=== PATIENT | female | born 1990 | race Caucasian/White ===

== ENCOUNTER 2020-09-28 12:58 | Outpatient (CLI) | payer OTHER ==
[2020-09-28] MEDS ORDERED: HYDROCORTISONE SUPPOSITORY 25 MG SUPP RECTAL STA (13:13)
[2020-09-28] MEDS ORDERED: BENZOCAINE/MENTHOL SPRAY 1 GM/SPRAY AEROSOL TOPICAL PRN (13:16)
[2020-09-28 14:16] VITALS: BP 125/65; PULSE 97; RESP 18; TEMP 96.6
--- NOTE | 2020-09-29 08:20 | P.MSEPDOC ---
Presenting Problems - Arrival Data Date of Arrival on Unit: 09/28/20 Time of Arrival on Unit: 12:55 Mode of Transport: Ambulatory - Complaint OB-Reason for Admission/Chief Complaint: Possible Onset of Labor Comment: rectal pressure, constipation, ? contractions Medical History - Information : 3 Para: 2 Term: 2 : 0 Abortions: Spontaneous or Elective: 0 Number of Living Children: 2 - Gestational Age Gestational Age by ISABELLE (wks/days): 33 Weeks and 0 Days - History Comment: Hx hemorrhoids, constipation x 5 days Review of Systems - Review of Systems Constitutional: No problems Breast: No problems ENT: No problems Cardiovascular: No problems Respiratory: No problems Gastrointestinal: Constipation Genitourinary: No problems Musculoskeletal: No problems Neurological: No problems Skin: No problems Comment: + BM in triage today x2 Vital Signs - Temperature Temperature: 96.6 F Temperature Source: Temporal Artery Scan - Pulse Right Sitting Brachial Pulse Rate: 97 Pulse Assessment Method: Automatic Cuff - Respirations Respiratory Rate: 18 Oxygen Delivery Method: Room Air O2 Sat by Pulse Oximetry: 100 - Blood Pressure Right Arm Sitting Blood Pressure: 125/65 Blood Pressure Mean: 85 Blood Pressure Source: Automatic Cuff Medical Screen Scoring (Pre) - Cervical Exam Dilation: 0 cm = 0 Effacement: More than 50% = 2 Membranes: Intact - Uterine Contractions Frequency: > 5 minutes apart = 1 Duration: > 40 seconds = 2 Intensity: N/A - Maternal Vital Signs Maternal Temperature: N/A Maternal Blood Pressure: N/A Signs of Preeclampsia: N/A Maternal Respirations: N/A - Maternal Trauma Maternal Trauma: N/A - Assessment - Baby A Baseline FHR: 125 Heart Rate - NICHD Category: Category I (Normal) = 0 NST: Reactive Position: N/A Station: N/A - Total Score - Baby A Total Score - Baby A: 5 - Total Score - Baby B Total Score - Baby B: 5 - Total Score - Baby C Total Score - Baby C: 5 - Level of Risk - Baby A Level of Risk - Baby A: Low (0-5) - Level of Risk - Baby B Level of Risk - Baby B: Low (0-5) - Level of Risk - Baby C Level of Risk - Baby C: Low (0-5) Physician Notification (Pre) - Physician Notified Physician Notified Date: 09/28/20 Physician Notified Time: 14:00 New Order Received: Yes - Notification Comment Comment: Pt declined rectal suppository today, + BM x2 in triage, pt with some relief of hemorrhoid pain with tucks/dermaplast spray. Pt sent with tucks/spray/ice and instruction for OTC Anusol. Disposition - Disposition OB Disposition: Discharge to home Discharge Date: 09/28/20 Discharge Time: 14:09 I agree with the RN Medical Screening Exam: Yes Case reviewed; plan agreed upon as documented in EMR&OBIX.: Yes Diagnosis: HEMORRHOIDS IN , THIRD TRIMESTER
== END 2020-09-28 14:00 | disposition home or self-care (01) ==
LOC: FBPOP 12:58
PROVIDERS: ATTEND Obstetrics & Gynecology
DX: O22.43 Hemorrhoids in pregnancy, third trimester (principal); Z3A.33 33 weeks gestation of pregnancy
CPT/HCPCS: 59025; 99213

== ENCOUNTER 2020-11-10 06:16 | Inpatient (IN) | payer OTHER ==
[2020-11-10] MEDS ORDERED: METHYLERGONOVINE 0.2 MG/ML 1 ML AMP IM PRN (06:28)
[2020-11-10] MEDS ORDERED: OXYTOCIN 10 UNIT/ML 1 ML VIAL IM PRN (06:28)
[2020-11-10] MEDS ORDERED: TERBUTALINE 1 MG/ML VIAL SQ PRN (06:28)
[2020-11-10] MEDS ORDERED: CARBOPROST TROMETHAMINE 250 MCG/ML 1 ML AMP IM PRN (06:28)
[2020-11-10] MEDS ORDERED: LIDOCAINE 0.5% (PF) 5 MG/ML (50 ML SDV) SQ PRN (06:28)
[2020-11-10] MEDS ORDERED: OXYTOCIN 30 UNITS/500 ML NS 30 UNIT in SALINE 1 500ML.BAG IV SCH ×2 (06:30→13:00)
[2020-11-10] MEDS: LACTATED RINGERS 1,000 ML IV SCH ×2 (06:30→10:46)
[2020-11-10 06:59] LABS: Basophils % (A) 0 %; Eosinophils # (A) 0.1 k/uL (0-0.7); Eosinophils % (A) 1 %; HCT 35.6 % (34.0-46.0); HGB 12.1 gm/dL (11.4-16.0); Lymphocytes # (A) 1.4 k/uL (1.0-4.8); Lymphocytes % (A) 23 %; MCH 28.7 pg (25.0-35.0); MCHC 33.9 g/dL (31.0-37.0); MCV 84.5 fL (80.0-100.0); Mean Platelet Volume 7.6; Monocytes # (A) 0.4 k/uL (0-1.0); Monocytes % (A) 6 %; Neutrophils # (A) 4.2 k/uL (1.3-7.7); Neutrophils % (A) 69 %; Platelet Count 192 k/uL (150-450); RBC 4.22 m/uL (3.80-5.40); RDW 13.7 % (11.5-15.5); WBC 6.2 k/uL (3.8-10.6)
[2020-11-10] MEDS ORDERED: ROPIVACAINE 100 MG, fentaNYL (PF) 200 MCG in SODIUM CHLORIDE 0.9% 76 ML EPIDURAL ONE (10:46)
[2020-11-10] MEDS ORDERED: LANOLIN CREAM 5 GM TUBE TOPICAL PRN (12:47)
[2020-11-10] MEDS ORDERED: BENZOCAINE/MENTHOL SPRAY 1 GM/SPRAY AEROSOL TOPICAL PRN (12:47)
[2020-11-10] MEDS ORDERED: diphenhydrAMINE 25 MG CAP PO PRN (12:47)
[2020-11-10] MEDS ORDERED: SIMETHICONE 80 MG CHEWABLE PO PRN (12:47)
[2020-11-10] MEDS ORDERED: ZOLPIDEM 5 MG TAB PO PRN (12:47)
[2020-11-10] MEDS ORDERED: diphenhydrAMINE 50 MG/ML 1 ML VIAL IVP PRN ×2 (12:47)
[2020-11-10] MEDS ORDERED: HYDROCORTISONE 2.5% RECTAL CREAM 30 GM TUBE RECTAL PRN (12:47)
[2020-11-10] MEDS ORDERED: ACETAMINOPHEN TAB 325 MG TAB PO PRN (12:47)
[2020-11-10] MEDS ORDERED: diphenhydrAMINE 50 MG CAP PO PRN (12:47)
--- NOTE | 2020-11-10 12:52 | P.HPOB ---
History of Present Illness H&P Date: 11/10/20 Chief Complaint: Induction of Labor 30-year-old presents at 39 weeks and 1 day for induction of labor. Her cervix is 3 cm dilated, 60% effaced, and -2 station. She is romeo irregularly. heart tones 135 with moderate variability and reactive. Review of Systems All systems: negative Constitutional: Denies chills, Denies fever Eyes: denies blurred vision, denies pain Ears, nose, mouth and throat: Denies headache, Denies sore throat Cardiovascular: Denies chest pain, Denies shortness of breath Respiratory: Denies cough Gastrointestinal: Denies abdominal pain, Denies diarrhea, Denies nausea, Denies vomiting Genitourinary: Denies dysuria, Denies hematuria Musculoskeletal: Denies myalgias Integumentary: Denies pruritus, Denies rash Neurological: Denies numbness, Denies weakness Psychiatric: Denies anxiety, Denies depression Endocrine: Denies fatigue, Denies weight change Past Medical History Past Medical History: No Reported History Additional Past Medical History / Comment(s): Surgical history: She's had 2 previous vaginal deliveries. This is her third . She's had pale care with me the entire time. Blood type is O+, antibodies negative, rubella immune, hepatitis B negative, RPR nonreactive, GBS negative. History of Any Multi-Drug Resistant Organisms: None Reported Past Surgical History: Appendectomy, Tonsillectomy Past Anesthesia/Blood Transfusion Reactions: No Reported Reaction Smoking Status: Former smoker Past Drug Use History: Marijuana Additional Drug Use History / Comment(s): THC use Medications and Allergies Home Medications Medication Instructions Recorded Confirmed Type No Known Home Medications 09/28/20 09/28/20 History Allergies Allergy/AdvReac Type Severity Reaction Status Date / Time No Known Allergies Allergy Verified 09/28/20 13:03 Exam Osteopathic Statement: *. No significant issues noted on an osteopathic structural exam other than those noted in the History and Physical/Consult. Vital Signs Temp Pulse Resp BP 11/10/20 12:15 97.8 F 78 18 129/65 11/10/20 12:00 97.9 F 78 18 137/66 11/10/20 06:26 97.6 F 90 16 127/70 Intake and Output 11/09/20 11/10/20 11/10/20 22:59 06:59 14:59 Intake Total 5.817 Balance 5.817 Intake: Intake, IV Titration 5.817 Amount Oxytocin 30 Units/500 ml 5.817 Ns 30 unit In Saline 1 500ml.bag @ Per Protocol IV .Q0M [facility] Rx#:[id number] Other: Weight 82.554 kg Heart: Regular rate and rhythm Lungs: Clear to auscultation bilaterally Abdomen: Soft, nontender Extremities: Negative Homans sign Results Result Diagrams: 11/10/20 06:30 Assessment and Plan (1) Encounter for induction of labor Current Visit: Yes Status: Acute Code(s): Z34.90 - ENCNTR FOR SUPRVSN OF NORMAL , UNSP, UNSP TRIMESTER SNOMED Code(s): 802570626 Plan: 1. Induction of labor with amniotomy and Pitocin 2. Anticipate normal vaginal delivery
--- NOTE | 2020-11-10 12:53 | P.PROBDLV ---
Vaginal Delivery Note - . Vaginal Delivery Note: 30-year-old presents at 39 weeks and 1 day for induction of labor. Her cervix is 3 cm dilated, 60% effaced, and -2 station. She is romeo irregularly. heart tones 135 with moderate variability and reactive. Pitocin was started. Amniotomy performed at 7:01 AM clear fluid noted. When she was uncomfortable she did get an epidural. Her cervix is completely dilated at 11:43 AM. She pushed, and a viable female over intact perineum under epidural anesthesia at 11:57 AM. Head delivered OA, nuchal cord 1 easily reduced, anterior shoulder delivered gentle downward guidance followed by posterior shoulder and rest of body. Nose and mouth bulb suctioned, click to cut, placed on mother's abdomen. Apgars 8, 9, weight 7 lbs. 4 oz. Placenta delivered spontaneously, intact with three-vessel cord at 11:59 AM. Vagina, cervix, perineum were inspected. No lacerations noted. Estimated blood loss 200 mL. Mother and baby in stable condition.
[2020-11-10] MEDS: IBUPROFEN 600 MG TAB PO SCH ×2 (13:05→23:43)
[2020-11-10] MEDS: SENNOSIDES-DOCUSATE SODIUM 1 EACH TAB PO SCH (23:44)
[2020-11-11] MEDS: IBUPROFEN 600 MG TAB PO SCH ×3 (06:30→14:24)
[2020-11-11 08:39] LABS: Basophils % (A) 0 %; Eosinophils # (A) 0.1 k/uL (0-0.7); Eosinophils % (A) 1 %; HGB 10.7 gm/dL (11.4-16.0); Lymphocytes # (A) 1.3 k/uL (1.0-4.8); Lymphocytes % (A) 19 %; MCH 28.2 pg (25.0-35.0); MCHC 33.4 g/dL (31.0-37.0); MCV 84.4 fL (80.0-100.0); Mean Platelet Volume 7.9; Monocytes # (A) 0.3 k/uL (0-1.0); Monocytes % (A) 5 %; Neutrophils % (A) 74 %; Platelet Count 175 k/uL (150-450); RBC 3.79 m/uL (3.80-5.40); RDW 14.2 % (11.5-15.5); WBC 6.7 k/uL (3.8-10.6)
--- NOTE | 2020-11-11 08:40 | P.DS ---
Providers Date of admission: 11/10/20 06:16 Expected date of discharge: 11/11/20 Attending physician: Mackenzie Romo Primary care physician: Stated None - Discharge Diagnosis(es) (1) Encounter for induction of labor Current Visit: Yes Status: Resolved (2) Normal vaginal delivery Current Visit: Yes Status: Acute Hospital Course: Patient presented for induction of labor. She underwent a normal vaginal delivery. course was uncomplicated. She denies nausea, vomiting, chest pain, shortness of breath or any calf pain. Her lochia is minimal. She is ambulating and voiding without difficulty. Fundus is firm 2 fingerbreadths below the umbilicus. She'll be discharged home day #1 in stable condition to follow-up with me in 6 weeks. Plan - Discharge Summary New Discharge Prescriptions: No Action No Known Home Medications Discharge Medication List No Known Home Medications 09/28/20 [History]
[2020-11-11 09:26] VITALS: RESP 18
[2020-11-11] MEDS: SENNOSIDES-DOCUSATE SODIUM 1 EACH TAB PO SCH (09:48)
[2020-11-11 16:47] VITALS: BP 124/58; PULSE 67; TEMP 98.1
== END 2020-11-11 17:40 | disposition home or self-care (01) | DRG 807 ==
LOC: 4FBP 06:16
PROVIDERS: ADMIT Obstetrics & Gynecology; ATTEND Obstetrics & Gynecology
PROC: 10E0XZZ Delivery of Products of Conception, External Approach (ICD-10-PCS; principal; 2020-11-10)
PROC: 10907ZC Drainage of Amniotic Fluid, Therapeutic from Products of Conception, Via Natural or Artificial Opening (ICD-10-PCS; 2020-11-10)
PROC: 3E033VJ Introduction of Other Hormone into Peripheral Vein, Percutaneous Approach (ICD-10-PCS; 2020-11-10)
PROC: 3E0R3BZ Introduction of Anesthetic Agent into Spinal Canal, Percutaneous Approach (ICD-10-PCS; 2020-11-10)
DX: O69.81X0 Labor and delivery complicated by cord around neck, without compression, not applicable or unspecified (principal); Z37.0 Single live birth; Z87.891 Personal history of nicotine dependence; Z79.899 Other long term (current) drug therapy; Z3A.39 39 weeks gestation of pregnancy
CPT/HCPCS: 85025; 86850; 86900; 86901

== ENCOUNTER → 2022-06-30 | Outpatient (CLI) | payer OTHER ==
[2022-06-30 21:33] LABS: Chol/HDL Ratio 4.76 Ratio; LDL Cholesterol,Calculated 127.3 mg/dL (0.0-131.0); Magnesium 1.9 mg/dL (1.5-2.4)
[2022-06-30 22:07] LABS: ALT 12 U/L (8-44); AST 21 U/L (13-35); African American GFR (CKD) 135.4 (60.0-200.0); Albumin 4.7 g/dL (3.8-4.9); Albumin/Globulin Ratio 1.67 (1.60-3.17); Alkaline Phosphatase 77 U/L (41-126); BUN/Creat Ratio 15.94 Ratio (12.00-20.00); Bilirubin, Conjugated <0.20 mg/dL (0.20-0.40); Calcium 9.3 mg/dL (8.7-10.3); Carbon Dioxide 22.1 mmol/L (20.0-27.5); Chloride 107 mmol/L (96-109); Globulin 2.8 g/dL (1.6-3.3); Glucose 76 mg/dL (70-110); Non-African American GFR(CKD) 116.8 (60.0-200.0); Potassium 4.1 mmol/L (3.5-5.5); Sodium 143 mmol/L (135-145); Total Protein 7.5 g/dL (6.2-8.2)
== END | disposition home or self-care (01) ==
LOC: LABWHC1 11:26
PROVIDERS: ATTEND Internal Medicine
DX: R07.9 Chest pain, unspecified (principal)
CPT/HCPCS: 36415; 80048; 80061; 80076; 83735; 84439; 84443

== ENCOUNTER → 2022-06-30 | Outpatient (CLI) | payer OTHER ==
--- NOTE | 2022-07-01 21:38 | CA ---
Exercise Stress Test Report Name: Linette Weber Exam Date: 06/30/2022 11:06 Exam Location: [place] Stress Ht (in): 64 Wt (lb): 160 BSA: 1.78 Ordering Phys: Junaid Sierra MD Referring Phys: Junaid Sierra MD Technologist: Dylan Connolly Age: 32 Gender: F : 1990 Procedure CPT: Indications: R07.9 CHEST PAIN ICD-10 Codes: Patient History: CHEST PAIN, DIFFICULTY IN BREATHING, PALPITATIONS, FAMILY HX OF HEART DISEASE, CURRENT SMOKER 0.5 PPD X 15 YEARS Medications: KURVELO,,,,, Meds past 24 hrs: Pretest Chest Pain: STRESS TEST Michele Protocol Exercise Duration (min:sec): 07:[address] Depressions (mm): Angina Score: Hitchcock Score: Resting HR (bpm): 98 Peak HR (bpm): 174 Resting BP (mmHg): 136 / 96 Peak BP (mmHg): 142 / 102 MPHR: 190 Target HR: 162 % MPHR: 92 METS: 9.1 Total Dose: Peak Dose: Atropine: Double Product: 23058 BP Response: Stress Termination: MAX EXERTION/TARGET HR Stress Symptoms: DIZZINESS Stress Summary: ECG ANALYSIS Resting ECG: Stress ECG: CONCLUSIONS Baseline heart rate 85 beats a minute, Baseline blood pressure 136/96 Baseline 12-lead EKG shows sinus rhythm with normal IL narrow QRS T-wave inversions in the inferior leads and the lateral corner leads from V3 to V6 Patient exercised for a Michele protocol for 7 minutes, achieving a peak heart rate of 169 beats a minute, the blood pressure 140 901 100 mmHg He was dizzy during the stress test No arrhythmias No new EKG changes noted No evidence for ischemia Average exercise capacity Dr. Delfino Gutierrez MD (Electronically Signed) Final Date: 01 July 2022 21:38
== END | disposition home or self-care (01) ==
LOC: RADNMMAIN 10:39
PROVIDERS: ATTEND Internal Medicine
DX: R07.9 Chest pain, unspecified (principal)
CPT/HCPCS: 93017

== ENCOUNTER → 2022-07-21 | Outpatient (CLI) | payer OTHER ==
--- NOTE | 2022-07-22 07:06 | CA ---
Transthoracic Echo Report Name: Linette Weber Age: 32 Gender: F : 1990 Exam Date: 07/21/2022 14:46 Exam Location: [place] Echo Ht (in): 64 Wt (lb): 160 Ordering Physician: Junaid Sierra MD Attending/Referring Phys: Junaid Sierra MD Lean Manufacturing Engineer Alba Brown RDCS Procedure CPT: Indications: R07.9 CHEST PAIN Cardiac Hx: Technical Quality: Fair Contrast 1: Total Dose (mL): Contrast 2: Total Dose (mL): MEASUREMENTS (Male / Female) Normal Values 2D ECHO LV Diastolic Diameter PLAX 4.4 cm 4.2 - 5.9 / 3.9 - 5.3 cm LV Systolic Diameter PLAX 2.7 cm IVS Diastolic Thickness 0.9 cm 0.6 - 1.0 / 0.6 - 0.9 cm LVPW Diastolic Thickness 1.0 cm 0.6 - 1.0 / 0.6 - 0.9 cm LV Relative Wall Thickness 0.4 RV Internal Dim ED PLAX 3.3 cm LA Volume 27.9 cm??? 18 - 58 / 22 - 52 cm??? M-MODE Aortic Root Diameter MM 2.3 cm LA Systolic Diameter MM 3.4 cm LA Ao Ratio MM 1.5 AV Cusp Separation MM 1.7 cm DOPPLER AV Peak Velocity 126.7 cm/s AV Peak Gradient 6.4 mmHg AV Mean Velocity 91.1 cm/s AV Mean Gradient 3.6 mmHg AV Velocity Time Integral 20.2 cm LVOT Peak Velocity 60.8 cm/s LVOT Peak Gradient 1.5 mmHg MV Area PHT 3.4 cm??? Mitral E Point Velocity 77.6 cm/s Mitral A Point Velocity 63.1 cm/s Mitral E to A Ratio 1.2 MV Deceleration Time 220.3 ms MV E' Velocity 10.3 cm/s Mitral E to MV E' Ratio 7.5 TR Peak Velocity 189.6 cm/s TR Peak Gradient 14.4 mmHg Right Ventricular Systolic Press 19.4 mmHg FINDINGS Left Ventricle Normal left ventricular systolic function with no obvious regional wall motion abnormalities. Left ventricular ejection fraction is estimated at 55-60 %. Normal left ventricular diastolic filling pattern. Right Ventricle Normal right ventricular size and function. Right ventricular systolic pressure within normal limits. Right Atrium Normal right atrial size. Negative agitated saline bubble study for right to left shunt. Left Atrium Normal left atrial size. No evidence for an atrial septal defect. No patent foramen ovale. Mitral Valve Structurally normal mitral valve. No mitral stenosis or prolapse. Trace mitral regurgitation Aortic Valve Trileaflet aortic valve. No aortic valve stenosis or regurgitation. Tricuspid Valve Structurally normal tricuspid valve. Trace tricuspid regurgitation. Pulmonic Valve Structurally normal pulmonic valve. Pericardium No pericardial effusion. Aorta Normal size aortic root and proximal ascending aorta. CONCLUSIONS 1. Normal left ventricle size and systolic function 2. Trace mitral and tricuspid regurgitation 3. Negative bubble study with no evidence of shunting Previewed by: Dr. Henri Curry MD (Electronically Signed) Final Date: 22 July 2022 07:05
== END | disposition home or self-care (01) ==
LOC: RADECHMAIN 14:46
PROVIDERS: ATTEND Internal Medicine
DX: I08.1 Rheumatic disorders of both mitral and tricuspid valves (principal); R07.9 Chest pain, unspecified
CPT/HCPCS: 93306

== ENCOUNTER 2023-11-29 19:25 | Emergency (ER) | payer OTHER ==
--- NOTE | 2023-11-29 19:33 | ED ---
General Adult HPI - General Source: patient, RN notes reviewed Mode of arrival: ambulatory Limitations: no limitations <Alice Small - Last Filed: 11/29/23 19:32> <Damien Milner - Last Filed: 11/29/23 22:12> <Williams Gilmore - Last Filed: 11/30/23 00:47> - General Stated complaint: Chest Pain/Left arm pain Time Seen by Provider: 11/29/23 19:32 - History of Present Illness Initial comments: Quick note: 33-year-old female presents to the emergency department for evaluation of central chest pain radiating to her left arm. She states that this started on Tuesday or Tuesday. She states that she was not doing anything in particular when it started. She does follow with cardiology and reports a "abnormal EKG" in the past. She has had a stress test and echocardiogram performed in the past. (Alice Small) - Related Data Home Medications Medication Instructions Recorded Confirmed No Known Home Medications 09/28/20 09/28/20 Allergies Allergy/AdvReac Type Severity Reaction Status Date / Time No Known Allergies Allergy Verified 09/28/20 13:03 Review of Systems ROS Other: All systems not noted in ROS Statement are negative. <Alice Small - Last Filed: 11/29/23 19:32> ROS Other: All systems not noted in ROS Statement are negative. <Damien Milner - Last Filed: 11/29/23 22:12> ROS Other: All systems not noted in ROS Statement are negative. <Williams Gilmore - Last Filed: 11/30/23 00:47> ROS Statement: Those systems with pertinent positive or pertinent negative responses have been documented in the HPI. Past Medical History Past Medical History: No Reported History Additional Past Medical History / Comment(s): Surgical history: She's had 2 previous vaginal deliveries. This is her third . She's had pale care with me the entire time. Blood type is O+, antibodies negative, rubella immune, hepatitis B negative, RPR nonreactive, GBS negative. History of Any Multi-Drug Resistant Organisms: None Reported Past Surgical History: Appendectomy, Tonsillectomy Past Anesthesia/Blood Transfusion Reactions: No Reported Reaction Smoking Status: Former smoker Past Drug Use History: Marijuana <Alice Small - Last Filed: 11/29/23 19:32> General Exam Limitations: no limitations <Alice Small - Last Filed: 11/29/23 19:32> - General Exam Comments Initial Comments: Visual Physical Exam Vital signs reviewed General: Well-appearing, nontoxic, no acute distress. Head: Normocephalic, atraumatic Eyes: PERRLA, EOMI ENT: Airway patent Chest: Nonlabored breathing Skin: No visual rash, normal skin tone Neuro: Alert and oriented 3 Musculoskeletal: No gross abnormalities (Alice Small) Course Vital Signs 11/29/23 19:29 Temperature 98 F Pulse Rate 101 H Respiratory 18 Rate Blood Pressure 158/95 O2 Sat by Pulse 98 Oximetry EKG Findings - EKG Results: EKG: interpreted by ERMD, sinus rhythm (Rate 87 bpm), normal axis, normal QRS - Blocks, [place], Hypertrophy, ST Abn: Repolarization changes or abnormalities: nonspecific abnormality, ST segment, and/or T wave <Damien Milner - Last Filed: 11/29/23 22:12> Medical Decision Making <Alice Small - Last Filed: 11/29/23 19:32> - Lab Data Result diagrams: 11/29/23 20:00 11/29/23 20:00 <Damien Milner - Last Filed: 11/29/23 22:12> - Lab Data Result diagrams: 11/29/23 20:00 11/29/23 20:00 <Williams Gilmore - Last Filed: 11/30/23 00:47> - Medical Decision Making Quick note preformed and electronically signed by Alice Small PA-C (Alice Small) Patient care signed out to me by previous shift physician, Dr. Milner. Briefly, patient 33-year-old female presents to the emergency department with atypical chest pain typical features. Plan at signout was to follow-up with pending CT imaging CT angio was negative for PE. No other acute processes noted. Patient reevaluated at 12:47 AM in stable medical condition. Patient discharged advised follow-up with primary care doctor. (Williams Gilmore) - Lab Data Lab Results 11/29/23 11/29/23 11/29/23 Range/Units 20:00 20:00 20:00 WBC 7.3 (3.8-10.6) k/uL RBC 4.72 (3.80-5.40) m/uL Hgb 13.9 (11.4-16.0) gm/dL Hct 41.5 (34.0-46.0) % MCV 88.0 (80.0-100.0) fL MCH 29.4 (25.0-35.0) pg MCHC 33.5 (31.0-37.0) g/dL RDW 12.5 (11.5-15.5) % Plt Count 277 (150-450) k/uL MPV 7.9 Neutrophils % 62 % Lymphocytes % 30 % Monocytes % 5 % Eosinophils % 2 % Basophils % 0 % Neutrophils # 4.5 (1.3-7.7) k/uL Lymphocytes # 2.2 (1.0-4.8) k/uL Monocytes # 0.4 (0-1.0) k/uL Eosinophils # 0.1 (0-0.7) k/uL Basophils # 0.0 (0-0.2) k/uL PT 9.7 L (10.0-12.5) sec INR 0.9 (<1.2) APTT 25.0 (22.0-30.0) sec D-Dimer (<0.60) mg/L FEU Sodium 142 (137-145) mmol/L Potassium 3.9 (3.5-5.1) mmol/L Chloride 109 H (98-107) mmol/L Carbon Dioxide 23 (22-30) mmol/L Anion Gap 10 mmol/L BUN 10 (7-17) mg/dL Creatinine 0.64 (0.52-1.04) mg/dL Est GFR (CKD-EPI)AfAm >90 (>60 ml/min/1.73 sqM) Est GFR (CKD-EPI)NonAf >90 (>60 ml/min/1.73 sqM) Glucose 96 (74-99) mg/dL Calcium 9.3 (8.4-10.2) mg/dL Magnesium 2.0 (1.6-2.3) mg/dL Total Bilirubin 0.4 (0.2-1.3) mg/dL AST 22 (14-36) U/L ALT 20 (4-34) U/L Alkaline Phosphatase 65 (38-126) U/L Troponin I (0.000-0.034) ng/mL Total Protein 7.1 (6.3-8.2) g/dL Albumin 4.3 (3.5-5.0) g/dL Urine HCG, Qual (Not Detectd) 11/29/23 11/29/23 11/29/23 Range/Units 20:00 20:00 22:29 WBC (3.8-10.6) k/uL RBC (3.80-5.40) m/uL Hgb (11.4-16.0) gm/dL Hct (34.0-46.0) % MCV (80.0-100.0) fL MCH (25.0-35.0) pg MCHC (31.0-37.0) g/dL RDW (11.5-15.5) % Plt Count (150-450) k/uL MPV Neutrophils % % Lymphocytes % % Monocytes % % Eosinophils % % Basophils % % Neutrophils # (1.3-7.7) k/uL Lymphocytes # (1.0-4.8) k/uL Monocytes # (0-1.0) k/uL Eosinophils # (0-0.7) k/uL Basophils # (0-0.2) k/uL PT (10.0-12.5) sec INR (<1.2) APTT (22.0-30.0) sec D-Dimer 0.60 H (<0.60) mg/L FEU Sodium (137-145) mmol/L Potassium (3.5-5.1) mmol/L Chloride (98-107) mmol/L Carbon Dioxide (22-30) mmol/L Anion Gap mmol/L BUN (7-17) mg/dL Creatinine (0.52-1.04) mg/dL Est GFR (CKD-EPI)AfAm (>60 ml/min/1.73 sqM) Est GFR (CKD-EPI)NonAf (>60 ml/min/1.73 sqM) Glucose (74-99) mg/dL Calcium (8.4-10.2) mg/dL Magnesium (1.6-2.3) mg/dL Total Bilirubin (0.2-1.3) mg/dL AST (14-36) U/L ALT (4-34) U/L Alkaline Phosphatase (38-126) U/L Troponin I <0.012 (0.000-0.034) ng/mL Total Protein (6.3-8.2) g/dL Albumin (3.5-5.0) g/dL Urine HCG, Qual Not Detected (Not Detectd) Disposition <Alice Small - Last Filed: 11/29/23 19:32> <Damien Milner - Last Filed: 11/29/23 22:12> Is patient prescribed a controlled substance at d/c from ED?: No Time of Disposition: 00:45 <Williams Gilmore - Last Filed: 11/30/23 00:47> Clinical Impression: Chest pain Disposition: HOME SELF-CARE Condition: Good Instructions (If sedation given, give patient instructions): Chest Pain (ED) Referrals: None,Stated [Primary Care Provider] - 1-2 days
[2023-11-29 19:48] VITALS: RESP 18; TEMP 98
[2023-11-29 20:12] LABS: Basophils % (A) 0 %; Eosinophils # (A) 0.1 k/uL (0-0.7); Eosinophils % (A) 2 %; HCT 41.5 % (34.0-46.0); HGB 13.9 gm/dL (11.4-16.0); Lymphocytes # (A) 2.2 k/uL (1.0-4.8); Lymphocytes % (A) 30 %; MCH 29.4 pg (25.0-35.0); MCHC 33.5 g/dL (31.0-37.0); Mean Platelet Volume 7.9; Monocytes # (A) 0.4 k/uL (0-1.0); Monocytes % (A) 5 %; Neutrophils # (A) 4.5 k/uL (1.3-7.7); Neutrophils % (A) 62 %; Platelet Count 277 k/uL (150-450); RBC 4.72 m/uL (3.80-5.40); RDW 12.5 % (11.5-15.5); WBC 7.3 k/uL (3.8-10.6)
[2023-11-29 20:21] LABS: INR 0.9 (<1.2); Prothrombin Time 9.7 sec (10.0-12.5)
--- NOTE | 2023-11-29 20:45 | XR ---
EXAMINATION TYPE: XR chest 2V DATE OF EXAM: 11/29/2023 8:03 PM CLINICAL INDICATION:Female, 33 years old with history of Chest Pain; PH[facility] COMPARISON: None TECHNIQUE: XR chest 2V Frontal and lateral views of the chest. FINDINGS: Lungs/Pleura: There is no evidence of pleural effusion, focal consolidation, or pneumothorax. Pulmonary vascularity: Unremarkable. Heart/mediastinum: Cardiomediastinal silhouette is unremarkable. Musculoskeletal: No acute osseous pathology. IMPRESSION: No acute cardiopulmonary disease/process.
[2023-11-29 20:52] LABS: ALT 20 U/L (4-34); AST 22 U/L (14-36); African American GFR (CKD) >90 (>60 ml/min/1.73 sqM); Albumin 4.3 g/dL (3.5-5.0); Alkaline Phosphatase 65 U/L (38-126); Anion Gap 10 mmol/L; Blood Urea Nitrogen 10 mg/dL (7-17); Calcium 9.3 mg/dL (8.4-10.2); Carbon Dioxide 23 mmol/L (22-30); Chloride 109 mmol/L (98-107); Glucose 96 mg/dL (74-99); Non-African American GFR(CKD) >90 (>60 ml/min/1.73 sqM); Potassium 3.9 mmol/L (3.5-5.1); Sodium 142 mmol/L (137-145); Total Bilirubin 0.4 mg/dL (0.2-1.3); Total Protein 7.1 g/dL (6.3-8.2)
--- NOTE | 2023-11-30 00:37 | CT ---
EXAM: CT Angiography Chest With Intravenous Contrast CLINICAL HISTORY: L upper chest pain, possible PE TECHNIQUE: Axial computed tomographic angiography images of the chest with intravenous contrast. CTDI is 11.17 mGy and DLP is 278.6 mGy-cm. This CT exam was performed using one or more of the following dose reduction techniques: automated exposure control, adjustment of the mA and/or kV according to patient size, and/or use of iterative reconstruction technique. MIP reconstructed images were created and reviewed. COMPARISON: No relevant prior studies available. FINDINGS: Pulmonary arteries: Unremarkable. No pulmonary embolism. Aorta: No acute findings. No thoracic aortic aneurysm. Lungs: Unremarkable. No mass. No consolidation. Pleural space: Unremarkable. No significant effusion. No pneumothorax. Heart: Unremarkable. No cardiomegaly. No significant pericardial effusion. Bones/joints: No acute fracture. No dislocation. Soft tissues: Unremarkable. Lymph nodes: Unremarkable. No enlarged lymph nodes. IMPRESSION: Normal chest CTA. No pulmonary embolism.
[2023-11-30 01:33] VITALS: BP 131/91; PULSE 65
== END 2023-11-30 00:57 | disposition home or self-care (01) ==
LOC: EC 19:25
DX: R07.89 Other chest pain (principal); Z87.891 Personal history of nicotine dependence
CPT/HCPCS: 36415; 93005; 85379; 80053; 83735; 84484; 85025; 85610; 85730; 81025; 71046; 71275; 99285; Q9967

== ENCOUNTER → 2023-12-21 | Outpatient (CLI) | payer OTHER ==
--- NOTE | 2023-12-21 09:56 | MM ---
Reason for Exam: Clinical finding. Baseline mammogram. Indicated Problems: Pain of the left side (Global) for 2 Month(s). Patient History: Menarche at age 13. First Full-Term at age 27. Patient has history of breast feeding. Currently using Hormonal Contraceptives, for 15 years. Last menstrual period: 12/07/2023 Prior Study Comparison: Patient's first Mammogram. Tissue Density: The breasts are heterogeneously dense, which may obscure small masses. Findings: Analyzed By CAD. The pattern is symmetrical. No suspicious abnormality lateral left breast to account for patient's reported pain and swelling identified by mammography. Ultrasound recommended for additional evaluation. No suspicious groups of microcalcifications, spiculated or lobular masses, architectural distortion or other secondary signs of malignancy are mammographically apparent. Overall Assessment: Incomplete: need additional imaging evaluation, BI-RAD 0 Management: Diagnostic Breast Ultrasound of the left breast. A negative mammogram report should not preclude additional follow up of suspicious palpable abnormalities. Patient should continue monthly self breast exam. A clinical breast exam by your physician is recommended on an annual basis and results should be correlated with mammographic findings. Note on Kaykay scores and lifetime risk: 1. A Kaykay score greater than 3% is considered moderate risk. If this is the case, consider specialist referral to assess eligibility for a risk reducing agent. 2. If overall lifetime risk for the development of breast cancer is 20% or higher, the patient may qualify for future screening with alternating mammogram and breast MRI. Electronically signed and approved by: Enzo Boucher D.O. Radiologis
--- NOTE | 2023-12-21 10:23 | USB ---
Reason for Exam: Clinical finding. Patient History: Menarche at age 13. First Full-Term at age 27. Patient has history of breast feeding. Currently using Hormonal Contraceptives, for 15 years. Technique: Method: Whole Breast Handheld. Doppler: Color. Patient Position: Supine. Prior Study Comparison: No prior studies available for comparison. Findings: The whole breast of the left breast, the axilla of the left breast and the retroareolar of the left breast were scanned. At the 2:00 position 4 cm from the nipple left breast there is a hypoechoic area adjacent US abdominal view is less pronounced. No corresponding mammographic abnormality. Remainder of the ultrasound appears unremarkable. Overall Assessment: Probably benign, BI-RAD 3 Management: Diagnostic Breast Ultrasound of the left breast in 6 months. A clinical breast exam by your physician is recommended on an annual basis and results should be correlated with mammographic findings. This exam should not preclude additional follow-up of suspicious palpable abnormalities. Results were given to the patient verbally at the time of exam. Electronically signed and approved by: Enzo Boucher D.O. Radiologis
== END | disposition home or self-care (01) ==
LOC: RADMAMWWP 09:12
PROVIDERS: ATTEND Internal Medicine
DX: N60.12 Diffuse cystic mastopathy of left breast (principal)
CPT/HCPCS: 77062; 77066

== ENCOUNTER 2024-03-01 11:04 | Emergency (ER) | payer OTHER ==
[2024-03-01 11:45] LABS: Basophils % (A) 0 %; Eosinophils # (A) 0.1 k/uL (0-0.7); Eosinophils % (A) 1 %; HCT 40.9 % (34.0-46.0); HGB 13.4 gm/dL (11.4-16.0); Lymphocytes # (A) 1.7 k/uL (1.0-4.8); Lymphocytes % (A) 19 %; MCH 28.8 pg (25.0-35.0); MCHC 32.7 g/dL (31.0-37.0); MCV 88.1 fL (80.0-100.0); Mean Platelet Volume 7.9; Monocytes # (A) 0.4 k/uL (0-1.0); Monocytes % (A) 5 %; Neutrophils # (A) 6.6 k/uL (1.3-7.7); Neutrophils % (A) 73 %; Platelet Count 306 k/uL (150-450); RBC 4.64 m/uL (3.80-5.40); RDW 12.9 % (11.5-15.5)
[2024-03-01 11:57] LABS: Appearance,Urine Clear (Clear); Bilirubin,Urine Negative (Negative); Blood,Urine Negative (Negative); Color,Urine Colorless; Glucose,Urine (UA) Negative (Negative); Ketones,Urine Negative (Negative); Leukocyte Esterase,Urine Negative (Negative); Nitrite,Urine Negative (Negative); Protein,Urine Negative (Negative); Specific Gravity,Urine 1.007 (1.001-1.035); Urobilinogen,Urine <2.0 mg/dL (<2.0)
[2024-03-01 12:23] LABS: ALT 15 U/L (4-34); AST 20 U/L (14-36); African American GFR (CKD) >90 (>60 ml/min/1.73 sqM); Albumin 4.3 g/dL (3.5-5.0); Alkaline Phosphatase 67 U/L (38-126); Anion Gap 8 mmol/L; Blood Urea Nitrogen 6 mg/dL (7-17); Calcium 9.8 mg/dL (8.4-10.2); Carbon Dioxide 21 mmol/L (22-30); Chloride 108 mmol/L (98-107); Glucose 97 mg/dL (74-99); Non-African American GFR(CKD) >90 (>60 ml/min/1.73 sqM); Potassium 3.9 mmol/L (3.5-5.1); Sodium 137 mmol/L (137-145); Total Bilirubin 0.4 mg/dL (0.2-1.3); Total Protein 6.8 g/dL (6.3-8.2)
--- NOTE | 2024-03-01 12:30 | US ---
EXAMINATION TYPE: Transabdominal DATE OF EXAM: 03/01/2024 11:58 AM COMPARISON: NONE CLINICAL INDICATION: Female, 33 years old with history of Right sided pelvic pain in ; No pr evious US for this . EXAM PERFORMED: Transabdominal (TA) EXAM MEASUREMENTS: GESTATIONAL AGE / DATING Physician Established: Not yet established Dates by LMP: (8 weeks/0 days) EDC: 10/11/2024 Dates by First Scan: No previous this is first scan Dates by Current Scan for: (7 weeks/5 days) EDC: 10/13/2024 MATERNAL ANATOMY Uterus: 8.6 x 7.0 x 5.4 cm Right Ovary: 2.4 x 1.6 x 1.6 cm Left Ovary: 2.6 x 2.2 x 1.8 cm Post CDS / Adnexa: no free fluid Presence of free fluid: no Presence of corpus luteal cyst: no Presence of subchorionic bleed: adjacent to GS = 1.9 x 0.5 x 0.3 cm GESTATION / SURVEY CRL: 1.4 cm (7 weeks/5 days) MSD: seen, not measured Yolk Sac (normal less than 6mm): 3.0 mm Heart Rate: 129 bpm Rhythm: Normal IUP: Viable IUP Date of LMP: 01/05/2024, Beta HcG (if available): Not available at this time IMPRESSION: 1. Single live intrauterine gestation ultrasound age 7 weeks 5 days small subchorionic hemorrhage pre sent.
--- NOTE | 2024-03-01 12:40 | ED ---
Abdominal Pain HPI - General Chief Complaint: Abdominal Pain Stated Complaint: 8wks preg/cramping Time Seen by Provider: 03/01/24 11:13 Source: patient, RN notes reviewed Mode of arrival: ambulatory Limitations: no limitations - History of Present Illness Initial Comments: This is a 33-year-old female who presents to the emergency department for abdominal pain in . Patient is approximately 8 weeks and . States that she has had problems with right lower quadrant pain ongoing for the last 4 weeks. She does have occasional nausea as well and states that this has been an issue in prior pregnancies. Denies any vaginal bleeding or discharge. She is waiting for an appointment with [facility], but was advised to come to the emergency department to rule out an ectopic . MD Complaint: abdominal pain - Related Data Previous Rx's Medication Instructions Recorded Ondansetron Odt [Zofran Odt] 4 mg PO Q8HR PRN #30 tab 03/01/24 Allergies Allergy/AdvReac Type Severity Reaction Status Date / Time No Known Allergies Allergy Verified 09/28/20 13:03 Review of Systems ROS Statement: Those systems with pertinent positive or pertinent negative responses have been documented in the HPI. ROS Other: All systems not noted in ROS Statement are negative. Past Medical History Past Medical History: No Reported History Additional Past Medical History / Comment(s): Surgical history: She's had 2 previous vaginal deliveries. This is her third . She's had pale care with me the entire time. Blood type is O+, antibodies negative, rubella immune, hepatitis B negative, RPR nonreactive, GBS negative. History of Any Multi-Drug Resistant Organisms: None Reported Past Surgical History: Appendectomy, Tonsillectomy Past Anesthesia/Blood Transfusion Reactions: No Reported Reaction Smoking Status: Former smoker Past Drug Use History: Marijuana General Exam Limitations: no limitations General appearance: alert, in no apparent distress Head exam: Present: atraumatic, normocephalic, normal inspection Respiratory exam: Present: normal lung sounds bilaterally. Absent: respiratory distress, wheezes, rales, rhonchi, stridor Cardiovascular Exam: Present: regular rate, normal rhythm, normal heart sounds. Absent: systolic murmur, diastolic murmur, rubs, gallop, clicks Neurological exam: Present: alert, oriented X3, CN II-XII intact Psychiatric exam: Present: normal affect, normal mood Skin exam: Present: warm, dry, intact, normal color. Absent: rash Course Vital Signs 03/01/24 03/01/24 11:10 13:05 Temperature 99 F 98.3 F Pulse Rate 100 72 Respiratory 20 18 Rate Blood Pressure 127/82 124/77 O2 Sat by Pulse 98 100 Oximetry Medical Decision Making - Medical Decision Making This is a 33 year old female who presents to the emergency department for abdominal pain in . Was pt. sent in by a medical professional or institution? @ -No Did you speak to anyone other than the patient for history? @ -No Did you review nursing and triage notes? @ -Yes, and I agree, it is accurate with regards to the patient's symptoms. Were old charts reviewed? @ -No Differential Diagnosis? @ -Differential Abdominal Pain Women: Appendicitis, Cholecystitis, diverticulosis, ischemic bowel, pancreatitis, hepatitis, UTI, gastroenteritis, AAA, incarcerated hernia, bowel obstruction, constipation, inflammatory bowel, hepatitis, peptic ulcer disease, splenic infarction, perforated viscus, vulvitis, ovarian torsion, PID, kidney stone, placenta abruption, this is not meant to be an all-inclusive list EKG interpreted by me (3pts min.)? @ -Not obtained X-rays interpreted by me (1pt min.)? @ -Not obtained CT interpreted by me (1pt min.)? @ -Not obtained U/S interpreted by me (1pt. min.)? @ -Obstetrics ultrasound obtained. My interpretation identifies a single live intrauterine . What testing was considered but not performed? (CT, X-rays, U/S, labs)? Why? @ -None What meds were considered but not given? Why? @ -None Did you discuss the management of the patient with other professionals? @ -No Did you reconcile home meds? @ -No Was smoking cessation discussed for >3mins.? @ -No Was critical care preformed (if so, how long)? @ -No Were there social determinants of health that impacted care today? How? (Homelessness, low income, unemployed, alcoholism, drug addiction, transportation, low edu. Level, literacy, decrease access to med. care, [facility], rehab)? @ -No Was there de-escalation of care discussed even if they declined? (Discuss DNR or withdrawal of care, Hospice)? @ -No What co-morbidities impacted this encounter? (DM, HTN, Smoking, COPD, CAD, Cancer, CVA, Hep., AIDS, mental health diagnosis, sleep apnea, morbid obesity)? @ - Was patient admitted / discharged? @ -Discharge. Lab work unremarkable. Urinalysis negative for signs of infection. OB ultrasound obtained demonstrating a single live intrauterine with a gestational age of 7 weeks 5 days. A small subchorionic hemorrhage is also present. Findings reviewed with the patient. Currently denies any bleeding. There is no evidence of an ectopic , which was her concern. Additionally, with regards to the right lower quadrant pain, patient no longer has her appendix. She declined any Tylenol in the emergency department. She does report minor nausea in this which has been a problem in prior pregnancies. States that Zofran often works well for her. She was given a prescription for this to use as needed for any additional nausea and she will otherwise follow-up with [facility]EL[facility]. Undiagnosed new problem with uncertain prognosis? @ -None Drug Therapy requiring intensive monitoring for toxicity (Heparin, Nitro, Insulin, Cardizem)? @ -None Were any procedures done? @ -None Diagnosis/symptom? @ -Pelvic pain in Acute, or Chronic, or Acute on Chronic? @ -Acute Uncomplicated (without systemic symptoms) or Complicated (systemic symptoms)? @ -Uncomplicated Side effects of treatment? @ -None Exacerbation, Progression, or Severe Exacerbation] @ -Not applicable Poses a threat to life or bodily function? @ -No Return precautions reviewed in depth, the patient is instructed to return to the emergency department with any new, worsening, or concerning symptoms. Patient verbalized understanding. This case was discussed in detail with the attending ED physician, Dr. Gonzalez. Presentation, findings, and treatment plan discussed in detail as well. - Lab Data Result diagrams: 03/01/24 11:34 03/01/24 11:34 Lab Results 03/01/24 03/01/24 03/01/24 Range/Units 11:34 11:34 11:44 WBC 9.0 (3.8-10.6) k/uL RBC 4.64 (3.80-5.40) m/uL Hgb 13.4 (11.4-16.0) gm/dL Hct 40.9 (34.0-46.0) % MCV 88.1 (80.0-100.0) fL MCH 28.8 (25.0-35.0) pg MCHC 32.7 (31.0-37.0) g/dL RDW 12.9 (11.5-15.5) % Plt Count 306 (150-450) k/uL MPV 7.9 Neutrophils % 73 % Lymphocytes % 19 % Monocytes % 5 % Eosinophils % 1 % Basophils % 0 % Neutrophils # 6.6 (1.3-7.7) k/uL Lymphocytes # 1.7 (1.0-4.8) k/uL Monocytes # 0.4 (0-1.0) k/uL Eosinophils # 0.1 (0-0.7) k/uL Basophils # 0.0 (0-0.2) k/uL Sodium 137 (137-145) mmol/L Potassium 3.9 (3.5-5.1) mmol/L Chloride 108 H (98-107) mmol/L Carbon Dioxide 21 L (22-30) mmol/L Anion Gap 8 mmol/L BUN 6 L (7-17) mg/dL Creatinine 0.41 L (0.52-1.04) mg/dL Est GFR (CKD-EPI)AfAm >90 (>60 ml/min/1.73 sqM) Est GFR (CKD-EPI)NonAf >90 (>60 ml/min/1.73 sqM) Glucose 97 (74-99) mg/dL Calcium 9.8 (8.4-10.2) mg/dL Total Bilirubin 0.4 (0.2-1.3) mg/dL AST 20 (14-36) U/L ALT 15 (4-34) U/L Alkaline Phosphatase 67 (38-126) U/L Total Protein 6.8 (6.3-8.2) g/dL Albumin 4.3 (3.5-5.0) g/dL HCG, Quant 50257.8 mIU/mL Urine Color Colorless Urine Appearance Clear (Clear) Urine pH 7.0 (5.0-8.0) Ur Specific [place] 1.007 (1.001-1.035) Urine Protein Negative (Negative) Urine Glucose (UA) Negative (Negative) Urine Ketones Negative (Negative) Urine Blood Negative (Negative) Urine Nitrite Negative (Negative) Urine Bilirubin Negative (Negative) Urine Urobilinogen <2.0 (<2.0) mg/dL Ur Leukocyte Esterase Negative (Negative) - Radiology Data Radiology results: report reviewed, image reviewed Disposition Clinical Impression: Pelvic pain during , Subchorionic hematoma Disposition: HOME SELF-CARE Instructions (If sedation given, give patient instructions): Abdominal Pain in (ED), Subchorionic Hemorrhage (ED) Additional Instructions: Return to the emergency department with any new, worsening, or concerning symptoms. Take Tylenol as needed for pain relief. You can take the Zofran up to every 8 hours as needed for nausea and vomiting. Follow up with your APPLICATION DEVELOPER. Prescriptions: Ondansetron Odt [Zofran Odt] 4 mg PO Q8HR PRN #30 tab PRN Reason: Nausea And Vomiting Is patient prescribed a controlled substance at d/c from ED?: No Referrals: None,Stated [Primary Care Provider] - 1-2 days Time of Disposition: 12:56
[2024-03-01 13:07] VITALS: BP 124/77; PULSE 72; RESP 18; TEMP 98.3
== END 2024-03-01 13:06 | disposition home or self-care (01) ==
LOC: EC 11:04
DX: O34.91 Maternal care for abnormality of pelvic organ, unspecified, first trimester (principal); O20.8 Other hemorrhage in early pregnancy; Z3A.08 8 weeks gestation of pregnancy; Z87.891 Personal history of nicotine dependence; Z90.49 Acquired absence of other specified parts of digestive tract
CPT/HCPCS: 36415; 76801; 80053; 81003; 84702; 85025; 99284

== ENCOUNTER → 2024-06-29 | Outpatient (CLI) | payer OTHER ==
--- NOTE | 2024-06-29 13:20 | USB ---
Reason for Exam: Follow-up at short interval from prior study. Patient History: Menarche at age 13. First Full-Term at age 27. Patient has history of breast feeding. Currently using Hormonal Contraceptives, for 15 years. Technique: Method: Targeted. Prior Study Comparison: 12/21/2023 Bilateral MG 3D diag mammo w/cad [place], [facility]. Findings: The lateral section of the breast of the left breast, the axilla of the left breast and the retroareolar of the left breast were scanned. No solid or cystic masses are identified.. Overall Assessment: Negative, BI-RAD 1 Management: Screening Mammogram of both breasts at age 42. A clinical breast exam by your physician is recommended on an annual basis and results should be correlated with mammographic findings. This exam should not preclude additional follow-up of suspicious palpable abnormalities. Results were given to the patient verbally at the time of exam. [facility], , 06/29/2024 1:15 PM. Electronically signed and approved by: Carlo Humphrey M.D. Radiologis
== END | disposition home or self-care (01) ==
LOC: RADUSWWP 12:53
PROVIDERS: ATTEND Internal Medicine
DX: N63.20 Unspecified lump in the left breast, unspecified quadrant (principal)

== ENCOUNTER 2024-08-07 17:48 | Outpatient (CLI) | payer OTHER ==
[2024-08-07 18:08] LABS: Glucose,Whole Blood 95 mg/dL (70-110)
[2024-08-07 18:52] LABS: Appearance,Urine Clear (Clear); Bilirubin,Urine Negative (Negative); Blood,Urine Negative (Negative); Color,Urine Light Yellow; Glucose,Urine (UA) Negative (Negative); Ketones,Urine Negative (Negative); Leukocyte Esterase,Urine Negative (Negative); Nitrite,Urine Negative (Negative); Protein,Urine Negative (Negative); Specific Gravity,Urine 1.011 (1.001-1.035); Urobilinogen,Urine <2.0 mg/dL (<2.0)
[2024-08-07] MEDS: LACTATED RINGERS 1,000 ML IV ONE (19:50)
[2024-08-07 19:58] VITALS: BP 124/78; PULSE 84; RESP 16; TEMP 97.9
--- NOTE | 2024-08-26 11:51 | P.MSEPDOC ---
Presenting Problems - Arrival Data Date of Arrival on Unit: 08/07/24 Time of Arrival on Unit: 17:48 Mode of Transport: Ambulatory - Complaint OB-Reason for Admission/Chief Complaint: Decreased Movement, Dizziness Comment: Patient presents to triage with decreased movement, dizziness, and intermittent abdominal pressure. Medical History - Information : 4 Para: 3 Term: 3 : 0 Abortions: Spontaneous or Elective: 0 Number of Living Children: 3 - Gestational Age Gestational Age by ISABELLE (wks/days): 30 Weeks and 5 Days Review of Systems - Review of Systems Constitutional: No problems Breast: No problems ENT: No problems Cardiovascular: No problems Respiratory: No problems Gastrointestinal: No problems Genitourinary: No problems Musculoskeletal: No problems Neurological: No problems Skin: No problems Vital Signs - Temperature Temperature: 97.9 F Temperature Source: Temporal Artery Scan - Pulse Pulse Oximetery Pulse Rate: 84 Pulse Assessment Method: Pulse Oximetry - Respirations Respiratory Rate: 16 Oxygen Delivery Method: Room Air O2 Sat by Pulse Oximetry: 97 - Blood Pressure Right Arm Blood Pressure: 124/78 Blood Pressure Mean: 93 Blood Pressure Source: Automatic Cuff Maternal Triage Index - Maternal Triage Index Presenting for scheduled procedure w/no complaint: No - Stat/Priority 1 Stat Priority 1: No - Urgent/Priority 2 Urgent Priority 2: Yes Provider Notified: Juan Julien Provider Notified Time: 17:51 Criteria Met for Priority 2: Patient presents to triage with decreased movement, dizziness, and intermittent abdominal pressure. Disposition - Disposition OB Disposition: Discharge to home I agree with the RN Medical Screening Exam: Yes Physician's MSE Comment: I have neither seen nor examined the patient. Case reviewed; plan agreed upon as documented in EMR&OBIX.: Yes Diagnosis: RELATED CONDITIONS, UNSPECIFIED, THIRD TRIMESTER
== END 2024-08-07 19:59 ==
LOC: FBPOP 17:48
PROVIDERS: ATTEND Obstetrics & Gynecology
DX: O36.8190 Decreased fetal movements, unspecified trimester, not applicable or unspecified (principal); O26.893 Other specified pregnancy related conditions, third trimester; R42 Dizziness and giddiness; Z3A.30 30 weeks gestation of pregnancy
CPT/HCPCS: 59025; 81003; 99213

== ENCOUNTER 2024-08-30 14:47 | Outpatient (CLI) | payer OTHER ==
[2024-08-30 15:40] LABS: Basophils % (A) 0 %; Eosinophils % (A) 1 %; HGB 10.2 gm/dL (11.4-16.0); Hypochromasia Slight; Lymphocytes # (A) 0.9 k/uL (1.0-4.8); Lymphocytes % (A) 26 %; MCH 27.8 pg (25.0-35.0); MCV 84.4 fL (80.0-100.0); Mean Platelet Volume 8.2; Monocytes # (A) 0.2 k/uL (0-1.0); Monocytes % (A) 5 %; Neutrophils # (A) 2.3 k/uL (1.3-7.7); Neutrophils % (A) 65 %; Platelet Count 181 k/uL (150-450); RBC 3.67 m/uL (3.80-5.40); RDW 13.4 % (11.5-15.5); WBC 3.6 k/uL (3.8-10.6)
[2024-08-30 15:54] LABS: ALT 10 U/L (4-34); AST 17 U/L (14-36); African American GFR (CKD) >90 (>60 ml/min/1.73 sqM); Blood Urea Nitrogen 7 mg/dL (7-17); LDH 164 U/L (120-246); Non-African American GFR(CKD) >90 (>60 ml/min/1.73 sqM); Uric Acid 4.4 mg/dL (3.7-7.4)
[2024-08-30 15:55] LABS: Creatinine,Urine Random 181.1 mg/dL; Protein/Creatinine Ratio,Urine 0.055
[2024-08-30 16:10] LABS: Appearance,Urine Cloudy (Clear); Bacteria,Urine Rare /hpf; Bilirubin,Urine Negative (Negative); Blood,Urine Negative (Negative); Color,Urine Yellow; Glucose,Urine (UA) Negative (Negative); Ketones,Urine Negative (Negative); Leukocyte Esterase,Urine Small (Negative); Mucus,Urine Few /hpf; Nitrite,Urine Negative (Negative); PH, Urine 6.5 (5.0-8.0); Protein,Urine Trace (Negative); RBC,Urine 1 /hpf (0-5); Specific Gravity,Urine 1.027 (1.001-1.035); Squamous Epithelial Cell,Urine 14 /hpf (0-4); Urobilinogen,Urine <2.0 mg/dL (<2.0); WBC,Urine 5 /hpf (0-5)
[2024-08-30 16:36] VITALS: BP 143/85; PULSE 113; RESP 18; TEMP 97.3
--- NOTE | 2024-09-01 15:37 | P.MSEPDOC ---
Presenting Problems - Arrival Data Date of Arrival on Unit: 08/30/24 Time of Arrival on Unit: 14:47 Mode of Transport: Ambulatory - Complaint OB-Reason for Admission/Chief Complaint: PIH Comment: with written orders from office. Medical History - Information : 4 Para: 3 Term: 3 : 0 Abortions: Spontaneous or Elective: 0 Number of Living Children: 3 - Gestational Age Gestational Age by ISABELLE (wks/days): 34 Weeks and 0 Days Review of Systems - Review of Systems Constitutional: No problems Breast: No problems ENT: No problems Cardiovascular: No problems Respiratory: No problems Gastrointestinal: No problems Genitourinary: No problems Musculoskeletal: No problems Neurological: No problems Skin: No problems Vital Signs - Temperature Temperature: 97.3 F Temperature Source: Temporal Artery Scan - Pulse Pulse Oximetery Pulse Rate: 113 Pulse Assessment Method: Palpation - Respirations Respiratory Rate: 18 Oxygen Delivery Method: Room Air O2 Sat by Pulse Oximetry: 99 - Blood Pressure Right Arm Blood Pressure: 143/85 Blood Pressure Mean: 104 Blood Pressure Source: Automatic Cuff Medical Screen Scoring - Uterine Contractions Intensity: Mild Resting: Soft to palpation - Assessment - Baby A Baseline FHR: 135 Heart Rate - NICHD Category: Category I (Normal) NST: Reactive Physician Notification - Physician Notified Physician Notified Date: 08/30/24 Physician Notified Time: 16:12 Physician: Leena Hanna Order Received: Yes (home with instructions for bp monitoring/logging.) - Notification Comment Comment: initial bp on arrival@1455 143/85 with cycle pressures of 139/85,135/84,130/76,134/87,130/86, and 131/79. Maternal Triage Index - Maternal Triage Index Presenting for scheduled procedure w/no complaint: No - Stat/Priority 1 Stat Priority 1: No - Urgent/Priority 2 Urgent Priority 2: No - Prompt/Priority 3 Prompt Priority 3: No - Non-Urgent/Priority 4 Non-Urgent Priority 4: No - Scheduled/Requesting Priority 5 Scheduled/Requesting Priority 5: Yes Criteria Met for Priority 5: from office with written orders. Disposition - Disposition OB Disposition: Discharge to home Discharge Date: 08/30/24 Discharge Time: 16:12 I agree with the RN Medical Screening Exam: Yes Physician's MSE Comment: I have neither seen nor examined the patient Case reviewed; plan agreed upon as documented in EMR&OBIX.: Yes Diagnosis: OTHER SPECIFIED COMPLICATIONS OF LABOR AND DELIVERY
== END 2024-08-30 16:12 | disposition home or self-care (01) ==
LOC: FBPOP 14:47
PROVIDERS: ATTEND Obstetrics & Gynecology
DX: O75.89 Other specified complications of labor and delivery (principal); Z3A.34 34 weeks gestation of pregnancy
CPT/HCPCS: 59025; 81001; 82565; 82570; 83615; 84156; 84450; 84460; 84520; 84550; 85025

== ENCOUNTER 2024-09-13 11:57 | Outpatient (CLI) | payer OTHER ==
[2024-09-13 12:35] LABS: Appearance,Urine Clear (Clear); Bilirubin,Urine Negative (Negative); Blood,Urine Negative (Negative); Color,Urine Colorless; Glucose,Urine (UA) Negative (Negative); Ketones,Urine Negative (Negative); Leukocyte Esterase,Urine Moderate (Negative); Mucus,Urine Rare /hpf; Nitrite,Urine Negative (Negative); PH, Urine 7.5 (5.0-8.0); Protein,Urine Negative (Negative); RBC,Urine <1 /hpf (0-5); Specific Gravity,Urine 1.005 (1.001-1.035); Squamous Epithelial Cell,Urine 2 /hpf (0-4); Urobilinogen,Urine <2.0 mg/dL (<2.0); WBC,Urine 5 /hpf (0-5)
[2024-09-13 13:29] LABS: Basophils % (A) 0 %; Eosinophils % (A) 1 %; HCT 30.5 % (34.0-46.0); HGB 10.4 gm/dL (11.4-16.0); Lymphocytes # (A) 1.1 k/uL (1.0-4.8); Lymphocytes % (A) 17 %; MCH 27.8 pg (25.0-35.0); MCHC 34.2 g/dL (31.0-37.0); MCV 81.2 fL (80.0-100.0); Mean Platelet Volume 8.5; Monocytes # (A) 0.3 k/uL (0-1.0); Monocytes % (A) 4 %; Neutrophils % (A) 76 %; Platelet Count 218 k/uL (150-450); Poikilocytosis Slight; RBC 3.76 m/uL (3.80-5.40); RDW 14.2 % (11.5-15.5); WBC 6.5 k/uL (3.8-10.6)
[2024-09-13 13:43] LABS: ALT 7 U/L (4-34); AST 14 U/L (14-36); African American GFR (CKD) >90 (>60 ml/min/1.73 sqM); Blood Urea Nitrogen 5 mg/dL (7-17); LDH 150 U/L (120-246); Non-African American GFR(CKD) >90 (>60 ml/min/1.73 sqM); Uric Acid 4.1 mg/dL (3.7-7.4)
[2024-09-13 13:56] LABS: Creatinine,Urine Random 30.1 mg/dL; Protein/Creatinine Ratio,Urine 0.432
[2024-09-13 15:16] VITALS: BP 168/93; PULSE 96; RESP 18; TEMP 98.2
--- NOTE | 2024-10-05 15:50 | P.MSEPDOC ---
Presenting Problems - Arrival Data Date of Arrival on Unit: 09/13/24 Time of Arrival on Unit: 11:57 Mode of Transport: Ambulatory - Complaint OB-Reason for Admission/Chief Complaint: Other Comment: increased BP at home Medical History - Information : 4 Para: 3 Term: 3 : 0 Abortions: Spontaneous or Elective: 0 Number of Living Children: 3 - Gestational Age Gestational Age by ISABELLE (wks/days): 36 Weeks and 0 Days - History Comment: increased BP the last few weeks, no current meds Review of Systems - Review of Systems Constitutional: No problems Breast: No problems ENT: No problems Cardiovascular: No problems Respiratory: No problems Gastrointestinal: No problems Genitourinary: No problems Musculoskeletal: No problems Neurological: No problems Skin: No problems Vital Signs - Temperature Temperature: 98.2 F Temperature Source: Oral - Pulse Right Sitting Brachial Pulse Rate: 96 Pulse Assessment Method: Automatic Cuff - Respirations Respiratory Rate: 18 Oxygen Delivery Method: Room Air O2 Sat by Pulse Oximetry: 98 - Blood Pressure Right Arm Sitting Blood Pressure: 168/93 Blood Pressure Mean: 118 Blood Pressure Source: Automatic Cuff Medical Screen Scoring - Assessment - Baby A Baseline FHR: 125 Heart Rate - NICHD Category: Category I (Normal) NST: Reactive Physician Notification - Physician Notified Physician Notified Date: 09/13/24 Physician Notified Time: 14:45 Physician: Leena Hanna Order Received: Yes (dc home, continue checking bp, eval if 160/110 or higher) - Notification Comment Comment: dc home with instructions. Planning ind next week. pt verbalized understanding of all care, treatment and follow up appts Maternal Triage Index - Maternal Triage Index Presenting for scheduled procedure w/no complaint: No - Stat/Priority 1 Stat Priority 1: No - Urgent/Priority 2 Urgent Priority 2: No - Prompt/Priority 3 Prompt Priority 3: Yes Criteria Met for Priority 3: materal vitals, labs reviewed with Dr Hanna. Planning IOL next week with follow up in the office on Tuesday Disposition - Disposition OB Disposition: Discharge to home, Written follow up instructions reviewed Discharge Date: 09/13/24 Discharge Time: 15:16 I agree with the RN Medical Screening Exam: Yes Physician's MSE Comment: I have neither seen nor examined the patient Case reviewed; plan agreed upon as documented in EMR&OBIX.: Yes Diagnosis: GESTATIONAL HTN W/O SIGNIFICANT PROTEINURIA, THIRD TRIMESTER
== END 2024-09-13 15:16 | disposition home or self-care (01) ==
LOC: FBPOP 11:57
PROVIDERS: ATTEND Obstetrics & Gynecology
DX: O13.3 Gestational [pregnancy-induced] hypertension without significant proteinuria, third trimester (principal); Z3A.36 36 weeks gestation of pregnancy
CPT/HCPCS: 59025; 81001; 82565; 82570; 83615; 84156; 84450; 84460; 84520; 84550; 85025; 99215

== ENCOUNTER 2024-09-20 06:00 | Inpatient (IN) | payer OTHER ==
[2024-09-20] MEDS ORDERED: OXYTOCIN 10 UNIT/ML 1 ML VIAL IM PRN (06:17)
[2024-09-20] MEDS ORDERED: CARBOPROST TROMETHAMINE 250 MCG/ML 1 ML AMP IM PRN (06:17)
[2024-09-20] MEDS ORDERED: METHYLERGONOVINE 0.2 MG/ML 1 ML AMP IM PRN (06:17)
[2024-09-20] MEDS ORDERED: miSOPROStoL 200 MCG TAB PO PRN (06:17)
[2024-09-20] MEDS ORDERED: LIDOCAINE 0.5% (PF) 5 MG/ML (50 ML SDV) SQ PRN (06:17)
[2024-09-20] MEDS ORDERED: miSOPROStoL 200 MCG TAB RECTAL PRN (06:17)
[2024-09-20] MEDS ORDERED: TERBUTALINE 1 MG/ML VIAL SQ PRN (06:17)
[2024-09-20] MEDS ORDERED: TRANEXAMIC 1,000 MG/100ML-NACL 1,000 MG in EMPTY BAG 1 BAG IV PRN (06:17)
[2024-09-20] MEDS: LACTATED RINGERS 500 ML IV SCH (06:30)
[2024-09-20] MEDS: OXYTOCIN 30 UNITS/500 ML NS 30 UNIT in SALINE 1 500ML.BAG IV SCH (06:32)
[2024-09-20 06:49] LABS: Basophils % (A) 1 %; Eosinophils % (A) 1 %; HCT 31.9 % (34.0-46.0); HGB 10.9 gm/dL (11.4-16.0); Hypochromasia Slight; Lymphocytes # (A) 1.5 k/uL (1.0-4.8); Lymphocytes % (A) 28 %; MCH 27.9 pg (25.0-35.0); MCHC 34.1 g/dL (31.0-37.0); MCV 81.8 fL (80.0-100.0); Mean Platelet Volume 7.8; Monocytes # (A) 0.3 k/uL (0-1.0); Monocytes % (A) 5 %; Neutrophils # (A) 3.4 k/uL (1.3-7.7); Neutrophils % (A) 63 %; Platelet Count 223 k/uL (150-450); RBC 3.89 m/uL (3.80-5.40); RDW 13.7 % (11.5-15.5); WBC 5.3 k/uL (3.8-10.6)
[2024-09-20] MEDS: LACTATED RINGERS 1,000 ML IV SCH (06:49)
--- NOTE | 2024-09-20 08:14 | P.HPOB ---
History of Present Illness H&P Date: 09/20/24 Chief Complaint: medical induction of labor Ms. Weber is a 34 year old at 37 weeks and 0 days gestation with EDC of 10/11/2023 by LMP consistent with 9 week US who presents for medical induction of labor for pre-eclampsia without severe features. Her has otherwise been complicated by a solitary choroid plexus cyst noted on anatomy US without any other abnormal findings. The fetus is estimated in the 60%ile based on a 32 week growth US. Obstetric history: 3 FTVD, 1st complicated by PIH, 2nd complicated by shoulder dystocia work-up: blood type O positive, antibody screen negative, rubella immune, VDRL non-reactive, HBsAg negative, HIV negative, HCV Ab non-reactive, gonorrhea negative, chlamydia negative, 1 hour GTT wnl, GBS pending. Patient with no history of GBS positivity and no prior infants with GBS sepsis. s/p flu and TDap vaccines. Past Medical History Past Medical History: No Reported History Additional Past Medical History / Comment(s): Surgical history: She's had 2 previous vaginal deliveries. This is her third . She's had pale care with me the entire time. Blood type is O+, antibodies negative, rubella immune, hepatitis B negative, RPR nonreactive, GBS negative. History of Any Multi-Drug Resistant Organisms: None Reported Past Surgical History: Appendectomy, Tonsillectomy Past Anesthesia/Blood Transfusion Reactions: No Reported Reaction Past Psychological History: No Psychological Hx Reported Smoking Status: Never smoker Past Drug Use History: None Reported - Past Family History Mother Family Medical History: Cancer, Diabetes Mellitus Additional Family Medical History / Comment(s): ovarian Father Family Medical History: Diabetes Mellitus, Hypertension Medications and Allergies Allergies Allergy/AdvReac Type Severity Reaction Status Date / Time No Known Allergies Allergy Verified 09/20/24 06:17 Exam Vital Signs Temp Pulse Resp BP 09/20/24 06:20 96.4 F L 79 18 138/86 Intake and Output 09/19/24 09/20/24 09/20/24 22:59 06:59 14:59 Other: Weight 84.368 kg Focused physical exam is performed. This is a healthy-appearing in no apparent distress. Breathing is non-labored. Abdomen is gravid and non-tender. Cervical exam is 2/50/-3. AROM is undertaken with clear fluid noted. Extremit ies non-tender and non-edematous. heart tones are Category I and tocometer is graphing contractions every 2-4 minutes. Results Result Diagrams: 09/20/24 06:28 Abnormal Lab Results - Last 24 Hours (Table) 09/20/24 Range/Units 06:28 Hgb 10.9 L (11.4-16.0) gm/dL Hct 31.9 L (34.0-46.0) % Assessment and Plan Assessment: 34 year old at 37 weeks gestation presenting for medical induction of labor for pre-eclampsia without severe features Plan: Admit, clear liquid diet, pitocin per protocol, nitrous oxide prn, continuous EFM and tocometer. Patient GBS unknown, discussed risks/benefits/alternatives to GBS ppx for GBS unknown. Discussed that the professional OBGYN and peds societies do not recommend for antibiotics for GBS unknown without risk factors (pre-term, rupture for longer than 18 hours, signs/symptoms of chorioamnionitis, prior GBS positivity, prior infant with GBS sepsis). Discussed that the may require a blood draw if the GBS results aren't back at the time of delivery. Patient with forego antibiotics at this time. Anticipate vaginal delivery.
[2024-09-20] MEDS ORDERED: diphenhydrAMINE 50 MG CAP PO PRN (14:56)
[2024-09-20] MEDS ORDERED: diphenhydrAMINE 25 MG CAP PO PRN (14:56)
[2024-09-20] MEDS ORDERED: ZOLPIDEM 5 MG TAB PO PRN (14:56)
[2024-09-20] MEDS ORDERED: SIMETHICONE 80 MG CHEWABLE PO PRN (14:56)
[2024-09-20] MEDS ORDERED: LANOLIN CREAM 1 GM TUBE TOPICAL PRN (14:56)
[2024-09-20] MEDS ORDERED: BENZOCAINE/MENTHOL SPRAY 1 GM/SPRAY AEROSOL TOPICAL PRN (14:56)
[2024-09-20] MEDS ORDERED: HYDROCORTISONE 2.5% RECTAL CREAM 30 GM TUBE RECTAL PRN (14:56)
[2024-09-20] MEDS ORDERED: diphenhydrAMINE 50 MG/ML 1 ML VIAL IVP PRN ×2 (14:56)
--- NOTE | 2024-09-20 14:56 | P.PROBDLV ---
Vaginal Delivery Note - . Vaginal Delivery Note: DATE OF SERVICE: 09/20/2024 PROCEDURE: Normal Vaginal Delivery ATTENDING: Dr. Leena Hanna MD ESTIMATED BLOOD LOSS: 150 mL FINDINGS: VFI, Apgars 9/9. Weight 7 pounds and 0 ounces PROCEDURE: Ms. Weber is a 34 year old at 37 weeks presenting to labor an d delivery for medical induction of labor for pre-eclampsia without severe features. For further details, please review the admitting H&P. Pitocin was titrated per protocol. AROM was performed at 733 revealing clear amniotic fluid. The patient was completely dilated at 1435. She pushed effectively with Category I heart tones. A viable female was delivered at 1441. The was placed on the maternal abdomen and bulb suctioned. The infant was noted to be spontaneously crying. Cord was clamped and cut after a 60-second delay. The was handed off to the pediatric team. Placenta was delivered whole with gentle cord traction at 1447. Oxytocin was started to facilitate uterine tone. Uterine fundus was found to be firm and below the umbilicus upon fundal massage. Thorough examination of the cervix, vagina, periurethral area, and perineum revealed no lacerations. The patient is stable and allowed to begin the bonding process.
[2024-09-20] MEDS: ACETAMINOPHEN TAB 500 MG TAB PO SCH (21:07)
[2024-09-20] MEDS: SENNOSIDES-DOCUSATE SODIUM 1 EACH TAB PO SCH (21:16)
[2024-09-20] MEDS: IBUPROFEN 800 MG TAB PO SCH (21:16)
[2024-09-21 06:16] LABS: Basophils % (A) 0 %; Eosinophils # (A) 0.1 k/uL (0-0.7); Eosinophils % (A) 1 %; HCT 30.8 % (34.0-46.0); HGB 10.2 gm/dL (11.4-16.0); Hypochromasia Slight; Lymphocytes # (A) 1.6 k/uL (1.0-4.8); Lymphocytes % (A) 21 %; MCH 27.4 pg (25.0-35.0); MCHC 33.1 g/dL (31.0-37.0); Mean Platelet Volume 7.8; Monocytes # (A) 0.5 k/uL (0-1.0); Monocytes % (A) 6 %; Neutrophils # (A) 5.5 k/uL (1.3-7.7); Neutrophils % (A) 71 %; Platelet Count 211 k/uL (150-450); RBC 3.71 m/uL (3.80-5.40); RDW 13.8 % (11.5-15.5); WBC 7.8 k/uL (3.8-10.6)
[2024-09-21 08:30] VITALS: BP 128/77; PULSE 72; RESP 16; TEMP 97.6
--- NOTE | 2024-09-21 08:39 | P.DS ---
Providers Date of admission: 09/20/24 06:05 Expected date of discharge: 09/21/24 Attending physician: Leena Hanna MD Primary care physician: Stated None Hospital Course: Ms. Weber is a 34 year old now PPD#1 s/p spontaneous vaginal delivery after medical induction of labor for preeclampsia without severe features. The patient is doing well this morning and had no acute events overnight. She has no complaints this morning. She reports minimal lochia, passing flatus, voiding without difficulty, ambulating, and eating/drinking without nausea or vomiting. Infant doing well at bedside, she is . Blood pressures have been normotensive since delivery. She denies chest pain, shortness of breathing, fevers, or chills overnight. She denies pain or swelling in the legs. restrictions are reviewed with the patient including pelvic rest for 6 weeks. The patient is encouraged to call the office if she experiences any heavy bleeding, foul-smelling discharge, breast complaints, or any if she has any oth er concerns. She will follow up in the office with in 1 week for blood pressure check. She plans to use Motrin and Tylenol over the counter as needed for pain. All questions are answered. Assessment: 34 year old now PPD#1 s/p Patient Condition at Discharge: Good Plan - Discharge Summary Follow up Appointment(s)/Referral(s): Leena Hanna MD [STAFF PHYSICIAN] - 1 Week (blood pressure check) Activity/Diet/Wound Care/Special Instructions: Instructions 1. Do not begin any exercise program for 3 weeks. 2. Do not resume sexual relations for 6 weeks or longer if uncomfortable. 3. You may take tub baths or showers at any time. 4. You may use tampons if desired after 6 weeks. 5. Keep any areas repaired with stitches clean and dry. 6. If you are not nursing, wear a good fitting, supportive bra during the day and limit fluid intake for at least 1 week to prevent breast engorgement. 7. Call the office, , within the next week to make appointment for your 6 week checkup if it has not already been made. 8. Report any of the following occurrences to the doctor promptly: a. Heavy, excessive bleeding b. Chills, fever c. Burning or frequency of urination d. Pain or redness and breasts if nursing e. Increasing pain or swelling of vulva (stitches). In addition to the above instructions, the following additional should be followed: 1. No heavy lifting or straining (exercising) until after 6 week checkup. 2. Keep abdominal incision clean and dry: You may wear a dressing if more comfortable. 3. Make office appointment for 2 weeks after delivery date. Discharge Disposition: HOME SELF-CARE
== END 2024-09-21 16:00 | disposition home or self-care (01) | DRG 806 ==
LOC: 4FBP 06:05
PROVIDERS: ADMIT Obstetrics & Gynecology; ATTEND Obstetrics & Gynecology
PROC: 10E0XZZ Delivery of Products of Conception, External Approach (ICD-10-PCS; principal; 2024-09-20)
PROC: 10907ZC Drainage of Amniotic Fluid, Therapeutic from Products of Conception, Via Natural or Artificial Opening (ICD-10-PCS; 2024-09-20)
PROC: 3E033VJ Introduction of Other Hormone into Peripheral Vein, Percutaneous Approach (ICD-10-PCS; 2024-09-20)
DX: O14.04 Mild to moderate pre-eclampsia, complicating childbirth (principal); O99.354 Diseases of the nervous system complicating childbirth; Z37.0 Single live birth; Z3A.37 37 weeks gestation of pregnancy; G93.0 Cerebral cysts
CPT/HCPCS: 85025; 86850; 86900; 86901